=== PATIENT | male | born 1955 | race Caucasian/White ===

== ENCOUNTER 2018-11-14 08:47 | Emergency (ER) | payer BC ==
[~2018-11-14] VITALS: Ht 190.5 cm; Wt 117.9 kg
[2018-11-14] MEDS ORDERED: FAMOTIDINE 20 MG TABLET. PO ONE (09:30)
[2018-11-14] MEDS ORDERED: methylPREDNISolone SOD SUCC PF 125 MG/2 ML VIAL. IM ONE (09:30)
[2018-11-14 09:50] VITALS: BP 136/57
--- NOTE | 2018-11-14 09:56 | PHYS DOC ---
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 Patient reports he woke up with arms, hands, and ears feeling like "they were on fire" he states he took claritin and went to bed, then woke up this morning on left neck swelling, and took 3 Benadryl, he states the swelling, burning has gone done. Patient denies any difficulty breathing. Denies any throat or tongue swelling. Review of Systems Review of Systems Constitutional: Denies fever or chills [] Eyes: Denies change in visual acuity, redness, or eye pain [] HENT: Denies nasal congestion or sore throat [] Respiratory: Denies cough or shortness of breath [] Cardiovascular: No additional information not addressed in HPI [] GI: Denies abdominal pain, nausea, vomiting, bloody stools or diarrhea [] : Denies dysuria or hematuria [] Musculoskeletal: Denies back pain or joint pain [] Integument: Reports burning sensation to the arms, hands and ears, reports left lateral neck swelling. Neurologic: Denies headache, focal weakness or sensory changes [] Endocrine: Denies polyuria or polydipsia [] All other systems were reviewed and found to be within normal limits, except as documented in this note. Current Medications Current Medications Current Medications Medications (Trade) Dose Ordered Sig/Samson Start Time Stop Time Status Last Admin Dose Admin Famotidine (Pepcid) 20 mg 1X ONCE 11/14/18 09:30 11/14/18 09:31 DC 11/14/18 09:24 20 MG Methylprednisolone Sodium Succinate (SOLU-Medrol 125MG VIAL) 125 mg 1X ONCE 11/14/18 09:30 11/14/18 09:31 DC 11/14/18 09:24 125 MG Allergies Allergies Allergies Coded Allergies Type Severity Reaction Last Updated Verified Sulfa (Sulfonamide Antibiotics) Allergy Unknown 11/14/18 Yes morphine Allergy Unknown 11/14/18 Yes aspirin Adverse Reaction Mild 11/14/18 Yes Physical Exam Physical Exam Constitutional: Well developed, well nourished, no acute distress, non-toxic appearance. [] HENT: Normocephalic, atraumatic, bilateral external ears normal, oropharynx moist, no oral exudates, nose normal. Airways open. Eyes: PERRLA, EOMI, conjunctiva normal, no discharge. [] Neck: Normal range of motion, no tenderness, supple, no stridor. [] Cardiovascular:Heart rate regular rhythm, no murmur [] Lungs & Thorax: Bilateral breath sounds clear to auscultation [] Abdomen: Bowel sounds normal, soft, no tenderness, no masses, no pulsatile masses. [] Skin: Warm, dry, no erythema, wound VAC noted on the right lateral buttock region. Back: No tenderness, no CVA tenderness. [] Extremities: No tenderness, no cyanosis, no clubbing, patient is wheelchair- bound . Neurologic: Alert and oriented X 3, normal motor function, normal sensory function, no focal deficits noted. [] Psychologic: Affect normal, judgement normal, mood normal. [] Current Patient Data Vital Signs Vital Signs Date Time Temp Pulse Resp B/P (MAP) Pulse Ox O2 Delivery O2 Flow Rate FiO2 11/14/18 08:50 97.8 54 16 157/67 (97) 97 Room Air 97.8 EKG EKG [] Radiology/Procedures Radiology/Procedures [] Course & Med Decision Making Course & Med Decision Making Pertinent Labs and Imaging studies reviewed. (See chart for details) This is a 63-year-old male patient who presents to the ED today complaining of arms, hands, ears burning at 3 AM, he took Claritin, At 6 AM complaining of left neck swelling. Took Benadryl. Symptoms are gone. On physical exam patient has no swelling, Airway is open. We treated him with Solu-Medrol and famotidine. He had already taken Benadryl. We held in the ED for a while, no signs of allergic reaction noted. He was discharged home and follow-up with his own PCP. Dragon Disclaimer Dragon Disclaimer This electronic medical record was generated, in whole or in part, using a voice recognition dictation system. Departure Departure Impression: Primary Impression: Allergic reaction Disposition: HOME, SELF-CARE Condition: STABLE Referrals: Rommel VERGARA MD (PCP) follow up as soon as you can Patient Instructions: Allergies, Generic Additional Instructions: You were evaluated in the emergency room, we did not note any significant allergic reaction symptoms but we took a precautions route and gave you medications related to allergic reaction symptoms. Please follow-up with your own doctor soon you he can and return to the Ed if symptoms re-occur. Problem Qualifiers Primary Impression: Allergic reaction Encounter type: initial encounter Qualified Codes: T78.40XA - Allergy, unspecified, initial encounter KORI CASTRO [employer]ER Nov 14, 2018 09:56
== END 2018-11-14 10:30 | disposition home or self-care (01) ==
LOC: ER 08:47
DX: T78.40XA Allergy, unspecified, initial encounter (principal); E11.9 Type 2 diabetes mellitus without complications; I10 Essential (primary) hypertension; Z90.89 Acquired absence of other organs; X58.XXXA Exposure to other specified factors, initial encounter; Z88.2 Allergy status to sulfonamides; Z88.5 Allergy status to narcotic agent; Z88.6 Allergy status to analgesic agent
CPT/HCPCS: 96372; 99283; J2930